=== PATIENT | male | born 1995 | race African-American/Black ===

== ENCOUNTER 2021-10-29 22:38 | Emergency (ER) | payer OTHER ==
[~2021-10-29] VITALS: Ht 195.6 cm; Wt 127.0 kg
[2021-10-30 00:12] LABS: Alcohol, Urine < 3.0 mg/dL (0-10); Amphetamine Screen, Urine NEGATIVE (NEGATIVE); Barbiturate Scree,Urine NEGATIVE (NEGATIVE); Benzodiazephine Screen, Urine NEGATIVE (NEGATIVE); Cannabinoid Screen, Urine NEGATIVE (NEGATIVE); Cocaine Screen, Urine NEGATIVE (NEGATIVE); Opiate Scree,Urine NEGATIVE (NEGATIVE); Phencyclidine Screen, Urine NEGATIVE (NEGATIVE)
[2021-10-30 00:30] VITALS: BP 138/72
== END 2021-10-30 00:44 | disposition home or self-care (01) ==
LOC: ER 22:38
DX: Z02.83 Encounter for blood-alcohol and blood-drug test (principal)
CPT/HCPCS: 80307